=== PATIENT | female | born 1995 | race Caucasian/White ===

== ENCOUNTER 2020-09-11 07:35 | Outpatient (CLI) | payer OTHER | END 2020-09-11 07:36 | disposition home or self-care (01) | LOC: RAD 07:35 | PROVIDERS: ATTEND Student in an Organized Health Care Education/Training Program | DX: M54.5 Low back pain (principal); M25.552 Pain in left hip; M41.9 Scoliosis, unspecified | CPT/HCPCS: 72100 ==

== ENCOUNTER 2020-10-18 15:13 | Outpatient (CLI) | payer OTHER | END 2020-10-18 15:14 | disposition home or self-care (01) | LOC: BICMRI 15:13 | PROVIDERS: ATTEND Nurse Practitioner Family | DX: M51.16 Intervertebral disc disorders with radiculopathy, lumbar region (principal); M51.25 Other intervertebral disc displacement, thoracolumbar region | CPT/HCPCS: 72148 ==